=== PATIENT | female | born 1995 | race Caucasian/White ===

== ENCOUNTER → 2017-06-02 | Outpatient (CLI) | payer BC ==
--- NOTE | 2017-06-02 10:27 | USB ---
Reason for exam: clinical finding. Indicated problem(s): palpable abnormality and pain in the left breast. Physical Findings: Nurse did not find any significant physical abnormalities on exam. US Breast LT Left breast ultrasound includes all four quadrants, the retroareolar region and axilla. Finding demonstrates no cystic or solid lesion seen. These results were verbally communicated with the patient and result sheet given to the patient on 06/02/17. ASSESSMENT: Negative, BI-RAD 1 RECOMMENDATION: Clinical management of the left breast. Manage patient on a clinical basis.
== END | disposition home or self-care (01) ==
LOC: RADUSWWP 08:31
PROVIDERS: ATTEND Family Medicine
DX: N64.4 Mastodynia (principal)

== ENCOUNTER 2017-09-08 16:51 | Emergency (ER) | payer BC ==
[2017-09-08 16:55] VITALS: BP 114/80; PULSE 76; TEMP 98.1
--- NOTE | 2017-09-08 17:14 | ED ---
URI HPI - General Chief Complaint: Upper Respiratory Infection Stated Complaint: Cough Time Seen by Provider: 09/08/17 16:57 Source: patient Mode of arrival: ambulatory Limitations: no limitations - History of Present Illness Initial Comments: patient presents with cough for the past 3 days. 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 Patient states yesterday she had significant rhinorrhea and nasal congestion. Patient states she is coughing up green sputum. Patient denies fevers, chills, nausea, vomiting, abdominal pain, shortness of breath, sore throat, headaches, changes in bowel or bladder habits. Patient states last menstrual period 2 weeks ago, patient denies chance of being . patient states she gets bilateral chest pain when coughing or taking deep breaths. She denies history of blood clots, control use, smoking, prolonged immobilization, recent surgery. MD Complaint: cough - Related Data Previous Rx's Medication Instructions Recorded Albuterol Inhaler [Ventolin Hfa 1 - 2 puff INHALATION Q6HR PRN #1 09/08/17 Inhaler] inhaler Ibuprofen 400 mg PO Q6HR PRN #30 tablet 09/08/17 predniSONE 40 mg PO DAILY 4 Days #8 tab 09/08/17 Allergies Allergy/AdvReac Type Severity Reaction Status Date / Time No Known Allergies Allergy Verified 09/08/17 17:18 Review of Systems ROS Statement: Those systems with pertinent positive or pertinent negative responses have been documented in the HPI. Constitutional: Reports: other (dec appetite). Denies: fever, chills, weakness Eyes: Denies: eye pain, vision change ENT: Reports: ear pain (pt states she has a mild pressure in the ears bilaterally), congestion. Denies: throat pain Respiratory: Reports: cough. Denies: dyspnea, wheezes Cardiovascular: Reports: chest pain (with coughing). Denies: dyspnea on exertion Endocrine: Denies: fatigue Gastrointestinal: Denies: abdominal pain, nausea, vomiting, diarrhea, constipation Genitourinary: Denies: urgency, dysuria, frequency, hematuria, discharge, abnormal menses Musculoskeletal: Denies: back pain Skin: Denies: rash Neurological: Denies: headache, confusion Past Medical History Past Medical History: No Reported History Additional Past Medical History / Comment(s): History of depression, no suicidal or homicidal ideation bipolar History of Any Multi-Drug Resistant Organisms: None Reported Past Surgical History: Ear Surgery Past Psychological History: Anxiety, Bipolar, Depression Smoking Status: Never smoker Past Alcohol Use History: None Reported Past Drug Use History: None Reported General Exam - General Exam Comments Initial Comments: sitting up in bed. No distress. Conversing normally. Calm, pleasant. Well appearing. Limitations: no limitations General appearance: alert, in no apparent distress Head exam: Present: atraumatic, normocephalic Eye exam: Present: normal appearance, PERRL, EOMI ENT exam: Present: normal oropharynx, mucous membranes moist, TM's normal bilaterally, other (TMs clear bilaterally. Oropharynx clear.) Neck exam: Present: full ROM. Absent: tenderness, meningismus Respiratory exam: Present: normal lung sounds bilaterally. Absent: respiratory distress, wheezes, rales, rhonchi, stridor, chest wall tenderness, accessory muscle use, decreased breath sounds, prolonged expiratory Cardiovascular Exam: Present: regular rate, normal rhythm GI/Abdominal exam: Present: soft. Absent: distended, tenderness, guarding, rebound, rigid Neurological exam: Present: alert, oriented X3 Psychiatric exam: Present: normal affect, normal mood Skin exam: Present: warm, dry, intact, normal color. Absent: rash Course Vital Signs 09/08/17 09/08/17 16:53 17:21 Temperature 98.1 F Pulse Rate 76 Respiratory 20 18 Rate Blood Pressure 114/80 O2 Sat by Pulse 98 Oximetry Medical Decision Making - Medical Decision Making patient has signs of upper respiratory tract infection versus bronchitis and pleurisy. Doubt bacterial sinusitis, otitis media, pneumonia, pulmonary embolism. Discussed no chest x-ray at this time with patient, she agrees. We' ll give prescription for albuterol, steroids, ibuprofen for symptoms. Patient states he only reason she came to the ER she could not get into her regular primary care clinic. Patient feels comfortable going home. Understands she is to be reevaluated by primary care physician one to 2 days, require further workup including chest x-ray if symptoms persist. Return to ED if new or worsening symptoms. Patient understands and agrees. Disposition Clinical Impression: Bronchitis, Upper respiratory infection Disposition: HOME SELF-CARE Condition: Good Instructions: Upper Respiratory Infection (ED), Acute Bronchitis (ED) Additional Instructions: primary care physician one to 2 days. Get x-ray if cough persistent for greater than 5 days or fevers arise. Prescriptions: Albuterol Inhaler [Ventolin Hfa Inhaler] 1 - 2 puff INHALATION Q6HR PRN #1 inhaler PRN Reason: Cough Ibuprofen 400 mg PO Q6HR PRN #30 tablet PRN Reason: Pain predniSONE 40 mg PO DAILY 4 Days #8 tab Referrals: Zeke Suárez DO [Primary Care Provider] - 1-2 days
[2017-09-08 17:21] VITALS: RESP 18
== END 2017-09-08 17:22 | disposition home or self-care (01) ==
LOC: EC 16:51
DX: J40 Bronchitis, not specified as acute or chronic (principal); J06.9 Acute upper respiratory infection, unspecified
CPT/HCPCS: 99283

== ENCOUNTER 2018-08-13 14:55 | Emergency (ER) | payer BC, OTHER ==
[2018-08-13 15:03] VITALS: TEMP 98.5
[2018-08-13] MEDS ORDERED: IPRATROPIUM-ALBUTEROL 3 ML NEB INHALATION STA (15:38)
--- NOTE | 2018-08-13 16:02 | ED ---
ENT HPI - General Chief complaint: ENT Stated complaint: Cough Time Seen by Provider: 08/13/18 15:11 Source: patient, RN notes reviewed, old records reviewed Mode of arrival: ambulatory Limitations: no limitations - History of Present Illness Initial comments: 22-year-old female presents emergency Department chief complaint of cough congestion shortness breath. She plans of sore throat chest pain. Patient states that she is exposed to pneumonia with her daughter. Patient reports that her cough is productive. She has no history of asthma or lung disease. She is a nonsmoker. Patient denies any recent fever, chills, shortness of breath, chest pain, back pain, abdominal pain, nausea vomiting, numbness or tingling, dysuria or hematuria, constipation or diarrhea, headaches or visual changes, or any other current symptoms - Related Data Previous Rx's Medication Instructions Recorded Albuterol Inhaler [Ventolin Hfa 1 - 2 puff INHALATION Q6HR PRN #1 09/08/17 Inhaler] inhaler Ibuprofen 400 mg PO Q6HR PRN #30 tablet 09/08/17 predniSONE 40 mg PO DAILY 4 Days #8 tab 09/08/17 Albuterol Inhaler [Ventolin Hfa 1 - 2 puff INHALATION RT-Q6H PRN 08/13/18 Inhaler] #1 inhaler Azithromycin [Zithromax Z-pack] 0 mg PO DIRECTED #6 tab 08/13/18 methylPREDNISolone Dose Pack 4 mg PO DIRECTED #21 package 08/13/18 [Medrol Dose Pack] Allergies Allergy/AdvReac Type Severity Reaction Status Date / Time No Known Allergies Allergy Verified 08/13/18 15:03 Review of Systems ROS Statement: Those systems with pertinent positive or pertinent negative responses have been documented in the HPI. ROS Other: All systems not noted in ROS Statement are negative. Past Medical History Past Medical History: No Reported History Additional Past Medical History / Comment(s): History of depression, no suicidal or homicidal ideation bipolar History of Any Multi-Drug Resistant Organisms: None Reported Past Surgical History: Ear Surgery Past Psychological History: Anxiety, Bipolar, Depression Smoking Status: Never smoker Past Alcohol Use History: None Reported Past Drug Use History: None Reported General Exam - General Exam Comments Initial Comments: 22-year-old female. Alert and oriented. No acute distress. General: Well appearing, well nourished, in no distress. Oriented x 3, normal mood and affect . Ambulating without difficulty. Skin: Good turgor, no rash, unusual bruising or prominent lesions Hair: Normal texture and distribution. HEENT: Head: Normocephalic, atraumatic, no visible or palpable masses, depressions, or scaring. Eyes: Visual acuity intact, conjunctiva clear, sclera non-icteric, EOM intact, PERRL. Ears: EACs clear, TMs translucent & cone of light visualized. hearing intact. Nose: No external lesions, mucosa non-inflamed, septum and turbinates normal Mouth: Mucous membranes moist, no mucosal lesions. Pharynx: Erythematous cervix. No evidence of x-ray. Neck: Supple, without lesions, bruits, or adenopathy, thyroid non-enlarged and non-tender Heart: No cardiomegaly or thrills; regular rate and rhythm, no murmur or gallop Lungs: Patient has mild wheezes. Rhonchi lung sounds. Abdomen: Bowel sounds normal, no tenderness, organomegaly, masses, or hernia Back: Spine normal without deformity or tenderness, no CVA tenderness Extremities: No amputations or deformities, cyanosis, edema or varicosities, peripheral pulses intact Musculoskeletal: Normal gait and station. No misalignment, asymmetry, crepitation, defects, tenderness, masses, effusions, decreased range of motion, instability, atrophy or abnormal strength or tone in the head, neck, spine, ribs , pelvis or extremities. Neurologic: CN 2-12 normal. Sensation to pain, touch, and proprioception normal. DTRs normal in upper and lower extremities. No pathologic reflexes. Psychiatric: Oriented X3, intact recent and remote memory, judgment and insight , normal mood and affect. Limitations: no limitations Course Vital Signs 08/13/18 08/13/18 08/13/18 15:01 15:57 16:09 Temperature 98.5 F Pulse Rate 73 74 Respiratory 18 20 Rate Blood Pressure 101/59 O2 Sat by Pulse 100 Oximetry 08/13/18 16:15 Temperature Pulse Rate 77 Respiratory Rate Blood Pressure O2 Sat by Pulse Oximetry Medical Decision Making - Medical Decision Making 22-year-old female presents seems to plan of cough, sore throat, chest pain with taking a deep breath. She does have some wheezing and rhonchorous lung sounds. Patient at this time he'll get a breathing treatment. Chest x-ray was noted. She does have clinical diagnosis of bronchitis. We'll discharge the Patient with a Medrol Dosepak and antibiotics. Discussed close follow-up with primary care physician P Patient is treatment plan will comply. Parameters were discussed. - Radiology Data Radiology results: report reviewed Interpreted by me: Normal chest x-ray noted. Disposition Clinical Impression: Bronchitis Disposition: HOME SELF-CARE Condition: Good Instructions: Upper Respiratory Infection (ED) Additional Instructions: Rest, increase fluid intake. Follow-up with primary care physician. Return to emergency department if any alarming signs or symptoms occur. Prescriptions: Albuterol Inhaler [Ventolin Hfa Inhaler] 1 - 2 puff INHALATION RT-Q6H PRN #1 inhaler PRN Reason: Shortness Of Breath Azithromycin [Zithromax Z-pack] 0 mg PO DIRECTED #6 tab methylPREDNISolone Dose Pack [Medrol Dose Pack] 4 mg PO DIRECTED #21 package Is patient prescribed a controlled substance at d/c from ED?: No Referrals: Zeke Suárez DO [Primary Care Provider] - 1-2 days Time of Disposition: 16:38
--- NOTE | 2018-08-13 16:46 | XR ---
EXAMINATION TYPE: XR chest 2V DATE OF EXAM: 08/13/2018 COMPARISON: 01/15/2016 INDICATION: Pain cough congestion TECHNIQUE: Frontal and lateral views of the chest are obtained. FINDINGS: The heart size is normal. The pulmonary vasculature is normal. The lungs are clear. IMPRESSION: 1. No acute pulmonary process.
[2018-08-13 17:04] VITALS: BP 116/67; PULSE 81; RESP 18
== END 2018-08-13 17:00 | disposition home or self-care (01) ==
LOC: EC 14:55
DX: J40 Bronchitis, not specified as acute or chronic (principal)
CPT/HCPCS: 71046; 94640; 99284

== ENCOUNTER 2018-09-12 13:05 | Emergency (ER) | payer BC, OTHER ==
[2018-09-12 13:19] VITALS: TEMP 98.6
[2018-09-12 14:49] LABS: Basophils % (A) 0 %; Eosinophils # (A) 0.1 k/uL (0-0.7); Eosinophils % (A) 1 %; HCT 39.7 % (34.0-46.0); HGB 13.1 gm/dL (11.4-16.0); Lymphocytes % (A) 21 %; MCH 30.3 pg (25.0-35.0); MCHC 33.1 g/dL (31.0-37.0); MCV 91.6 fL (80.0-100.0); Mean Platelet Volume 7.8; Monocytes # (A) 0.3 k/uL (0-1.0); Monocytes % (A) 5 %; Neutrophils # (A) 3.4 k/uL (1.3-7.7); Neutrophils % (A) 70 %; Platelet Count 198 k/uL (150-450); RBC 4.33 m/uL (3.80-5.40); RDW 13.2 % (11.5-15.5); WBC 4.9 k/uL (3.8-10.6)
[2018-09-12 14:58] LABS: ALT 30 U/L (9-52); AST 21 U/L (14-36); Albumin 4.1 g/dL (3.5-5.0); Alkaline Phosphatase 49 U/L (38-126); Anion Gap 8 mmol/L; Blood Urea Nitrogen 19 mg/dL (7-17); Calcium 9.4 mg/dL (8.4-10.2); Carbon Dioxide 28 mmol/L (22-30); Chloride 105 mmol/L (98-107); Glucose 89 mg/dL (74-99); Potassium 3.7 mmol/L (3.5-5.1); Sodium 141 mmol/L (137-145); Total Bilirubin 0.3 mg/dL (0.2-1.3); Total Protein 7.2 g/dL (6.3-8.2)
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
--- NOTE | 2018-09-12 17:31 | MR ---
EXAMINATION TYPE: MR lumbar spine wo/w con DATE OF EXAM: 09/12/2018 COMPARISON: 06/02/2016 HISTORY: Chronic back pain, new onset numbness in genital area TECHNIQUE: Multiplanar, multisequence images of the lumbar spine were acquired utilizing 6 mL intrave nous Gadavist gadolinium contrast. L1-L2: Normal disc appearance without desiccation. No herniation, protrusion or disc bulging. No ca nal stenosis is present. Foramina are patent bilaterally. L2-L3: Normal disc appearance without desiccation. No herniation, protrusion or disc bulging. No ca nal stenosis is present. Foramina are patent bilaterally. L3-L4: Normal disc appearance without desiccation. No herniation, protrusion or disc bulging. No ca nal stenosis is present. Foramina are patent bilaterally. L4-L5: Normal disc appearance without desiccation. No herniation, protrusion or disc bulging. No ca nal stenosis is present. Foramina are patent bilaterally. L5-S1: Normal disc appearance without desiccation. No herniation, protrusion or disc bulging. No ca nal stenosis is present. Foramina are patent bilaterally. Lumbar segments are intact. No paraspinal masses are identified. Conus medullaris has a normal appearance. Gadolinium contrast enhancement pattern is normal. IMPRESSION: Negative examination.
[2018-09-12 18:47] VITALS: BP 119/57; PULSE 62; RESP 18
== END 2018-09-12 18:45 | disposition home or self-care (01) ==
LOC: EC 13:05
DX: S39.012A Strain of muscle, fascia and tendon of lower back, initial encounter (principal); X58.XXXA Exposure to other specified factors, initial encounter
CPT/HCPCS: 36415; 80053; 85025; 81025; 72158; 99284; A9585

== ENCOUNTER → 2018-11-21 | Outpatient (CLI) | payer BC, OTHER ==
[2018-11-21 12:18] LABS: Basophils % (A) 0 %; Eosinophils # (A) 0.1 k/uL (0-0.7); Eosinophils % (A) 3 %; HCT 42.1 % (34.0-46.0); HGB 13.7 gm/dL (11.4-16.0); Lymphocytes # (A) 0.9 k/uL (1.0-4.8); Lymphocytes % (A) 17 %; MCH 29.6 pg (25.0-35.0); MCHC 32.6 g/dL (31.0-37.0); MCV 90.8 fL (80.0-100.0); Mean Platelet Volume 7.4; Monocytes # (A) 0.3 k/uL (0-1.0); Monocytes % (A) 5 %; Neutrophils % (A) 73 %; Platelet Count 185 k/uL (150-450); RBC 4.63 m/uL (3.80-5.40); WBC 5.5 k/uL (3.8-10.6)
== END | disposition home or self-care (01) ==
LOC: LABPAT 11:34
PROVIDERS: ATTEND Obstetrics & Gynecology
DX: Z01.812 Encounter for preprocedural laboratory examination (principal); Z64.0 Problems related to unwanted pregnancy
CPT/HCPCS: 85025

== ENCOUNTER → 2018-11-22 | Day surgery (SDC) | payer BC, OTHER ==
[2018-11-11 11:27] VITALS: BMI 20.3
--- NOTE | 2018-11-21 14:28 | HP ---
HISTORY AND PHYSICAL REASON FOR ADMISSION: Surgery tomorrow on November 22, 2018 HISTORY OF PRESENT ILLNESS: This is a 23-year-old white female 3, para 2, 1, 03, who presents for permanent tubal sterilization. She has an IUD in place and would like this removed, secondary to dysmenorrhea. Menses are long and heavy since the IUD was placed in 2013, ParaGard. Her is 37 years old and is on chemotherapy for leukemia, they desire no further children. She does have 3 healthy children and again further child bearing is declined. REVIEW OF SYSTEMS: Otherwise negative. PAST MEDICAL HISTORY: Significant for anxiety, depression, insomnia, panic attacks, ovarian cyst. PAST SURGICAL HISTORY: Adenoidectomy, back injections, arthroscopy of the knee, laser ablation of perineal condylomata, arthroscopic shoulder surgery, tonsillectomy, tubes in the ears. MEDICATIONS: Current medications ParaGard IUD. ALLERGIES: Allergies none known. FAMILY HISTORY: Significant for stroke and CVA of the patient's father, ovarian cancer, as well as cervical cancer per patient's history in her mother. Grandmother had breast cancer. REPRODUCTIVE HISTORY: Significant for 3 normal spontaneous vaginal deliveries, unremarkable. SOCIAL HISTORY: The patient has never been a smoker, 1 cup of coffee daily, she is , she denies alcohol, tobacco, or drug use. PHYSICAL EXAMINATION: On examination, this is a pleasant white female, 5 foot 3 inches, 120 pounds, BMI 21, blood pressure 118/62. HEENT exam reveals no thyromegaly, no cervical lymphadenopathy, good range of motion in the neck. The breasts are bilaterally symmetric to inspection with no skin dimpling, nipple discharge, or axillary adenopathy. Chest is clear to auscultation in all mccracken. Cardiac exam reveals regular rate and rhythm with no murmur, click, or rub. Abdomen is soft and nontender, no organosplenomegaly, active bowel sounds. Extremities reveal no edema, good peripheral pulses, good range of motion. On pelvic exam, external genitalia is well estrogenized and atraumatic. No unusual vaginal bleeding. Cervix is multiparous to inspection, IUD strings are noted at the external os. Uterus is small, anteverted, anteflexed, mobile, smooth, and nontender. Adnexa are negative bilaterally to palpation. IMPRESSION: The patient desiring permanent tubal sterilization, experiencing dysmenorrhea with the current IUD contraceptive. She is wishing that to be removed as well at the time of surgery. PLAN: We will proceed with IUD removal, and laparoscopic tubal ligation utilizing Filshie clips. We have reviewed the risks of surgery to include possible aspiration, nerve damage, or from anesthetic. She understands the risk of bleeding, infection, perforation or damage to bowel, bladder, ureters, blood vessels, or indeed any pelvic or abdominal organs. She understands the unlikely but possible need for laparotomy if complications should occur. Questions have been answered to the best of my ability. Patient understands that this is a permanent method of sterilization, but does have a failure rate, and that if she should ever find herself with the signs and symptoms of , a test would need to be performed immediately as ectopic is likely and can be life threatening. All questions answered. MMODL / IJN: [id number] /
[~2018-11-22] MED LIST: BUPIVACAIN-EPI 0.25%-1:200,000 30 ML VIAL SQ ONE; DEXAMETHASONE SOD PHOSPHATE 10 MG/ML 1 ML VIAL IV ONE; GLYCOPYRROLATE 0.2 MG/ML 2 ML VIAL ONE; KETOROLAC 30 MG/ML 1 ML VIAL ONE; LACTATED RINGERS 1,000 ML IV ONE; LACTATED RINGERS 1,000 ML IV SCH; LIDOCAINE 1% INJ 10MG/ML (20 ML MDV) ONE; MIDAZOLAM 2 MG/2 ML VIAL IVP ONE; MIDAZOLAM 2 MG/2 ML VIAL ONE; MORPHINE SULFATE 2 MG/ML SYRINGE IV PRN; NEOSTIGMINE 1 MG/ML 10 ML VIAL ONE; ONDANSETRON 4 MG/2 ML VIAL IVP ONE; ONDANSETRON 4 MG/2 ML VIAL IVP PRN; PROPOFOL 10 MG/ML 20 ML VIAL IV ONE; ROCURONIUM BROMIDE 10 MG/ML 10 ML VIAL IV ONE; fentaNYL (PF) 50 MCG/ML 2 ML AMP ONE
--- NOTE | 2018-11-22 11:41 | P.OP ---
Date of Procedure: 11/22/18 Preoperative Diagnosis: Undesired fertility Postoperative Diagnosis: Same, normal-appearing tubes and ovaries and uterus Procedure(s) Performed: Laparoscopic tubal ligation with Filshie clips, removal of IUD Anesthesia: EFRAIN Surgeon: Iram Salas Estimated Blood Loss (ml): 5 IV fluids (ml): 400 Urine output (ml): 150 Pathology: none sent Condition: stable Disposition: PACU Operative Findings: Normal-appearing tubes and ovaries bilaterally, ParaGard IUD removed intact. Description of Procedure: Patient is brought to the operating suite where a general anesthetic is administered. She's placed in the dorsal lithotomy position. The appropriate timeout is performed to assure proper patient and procedural identification. Urine hCG is negative, antibiotics are not deemed necessary. The cervix, vagina , perineal body, abdomen are all prepped and draped in usual sterile fashion. Bladder is drained for 150 mL of clear yellow urine. Speculum was placed into the vagina, anterior lip of the cervix is grasped with a Allis clamp. The IUD strings are visualized, last with a ring forcep, and removed. IUD is inspected and noted to be fully intact. [place] cannula is then placed on the cervix and this is attached to the Allis. Speculum is removed and attention is now drawn to the abdominal cavity. A small infraumbilical incision is made. Veress needle is placed and placement is checked with hanging drop technique. Abdomen is insufflated under low filling pressures of approximate 6-8 mmHg. 3.7 L of CO2 gas are used. Pneumoperitoneum is excellent. Peritoneum was removed. Trochars placed and placement is atraumatic. Second incision is made suprapubically in the midline under direct visualization, the trocar is placed atraumatically. Patient is now placed in Trendelenburg position. The right fallopian tube is visualized in its entirety, including the fimbriated end. A Filshie clip is placed in the isthmic portion of the tube, with care to traverse the entire diameter of the tube into the mesal salpinx. Ovary is normal. The same procedure is carried out on the contralateral tube, again in the isthmic portion through the entire diameter of the tube into the mesal salpinx. Contralateral ovary is also normal to inspection. No evidence of uterine fibroids, no evidence of pelvic endometriosis, no evidence of adhesions. CO2 gas is now allowed to diffuse. Instruments are removed under direct visualization, fascial defects are clean and dry. 4-0 Monocryl is used in a subcuticular manner for final incision closure. Steri-Strips and Mastisol are applied after they are injected with quarter percent Marcaine with 1% lidocaine , 10 mL used totally. All instrumentation is removed from the vagina, the cervix is clean and dry. All sponge needle and enhancement counts are correct. Patient is given Toradol prior to leaving the operative suite. She was taken back to the recovery room in very good condition with stable vital signs including 107/59, pulse 86.
[2018-11-22 11:56] VITALS: TEMP 99
[2018-11-22] MEDS: HYDROmorphone 0.5 MG/0.5 ML SYRINGE IVP PRN ×3 (11:58→12:47)
[2018-11-22 13:10] VITALS: RESP 16
[2018-11-22 15:16] VITALS: BP 105/68; PULSE 80
== END | disposition home or self-care (01) ==
LOC: OR 08:54
PROVIDERS: ATTEND Obstetrics & Gynecology
DX: Z30.2 Encounter for sterilization (principal); N94.6 Dysmenorrhea, unspecified; Z97.5 Presence of (intrauterine) contraceptive device
CPT/HCPCS: 81025; 58301; 58671; J2250; J1100; J2710; J2405; J2001; J3010; J1885; J2704; J1170

== ENCOUNTER → 2020-02-02 | Outpatient (CLI) | payer BC, OTHER ==
--- NOTE | 2020-02-02 11:42 | XR ---
Left hand HISTORY: Swelling and pain, lump or mass left hand 3 views of the left hand Bone mineralization, joint spaces and alignment are maintained. No fracture or dislocation. IMPRESSION: No abnormalities evident.
== END | disposition home or self-care (01) ==
LOC: RADXRMAIN 11:08
PROVIDERS: ATTEND Nurse Practitioner Family
DX: R22.32 Localized swelling, mass and lump, left upper limb (principal)

== ENCOUNTER 2022-01-15 08:36 | Emergency (ER) | payer BC, OTHER ==
[2022-01-15] MEDS ORDERED: SODIUM CHLORIDE 0.9% 500 ML 500 ML IV STA (08:56)
[2022-01-15] MEDS ORDERED: SODIUM CHLORIDE 0.9% 1,000 ML IV STA (08:56)
[2022-01-15] MEDS ORDERED: KETOROLAC 15 MG/ML 1 ML VIAL IVP STA (08:56)
[2022-01-15 09:15] LABS: Basophils % (A) 0 %; Eosinophils % (A) 1 %; HGB 13.8 gm/dL (11.4-16.0); Lymphocytes # (A) 0.3 k/uL (1.0-4.8); Lymphocytes % (A) 10 %; MCHC 34.5 g/dL (31.0-37.0); MCV 95.6 fL (80.0-100.0); Mean Platelet Volume 9.1; Monocytes # (A) 0.3 k/uL (0-1.0); Monocytes % (A) 10 %; Neutrophils # (A) 2.1 k/uL (1.3-7.7); Neutrophils % (A) 77 %; Platelet Count 101 k/uL (150-450); RBC 4.19 m/uL (3.80-5.40); RDW 13.1 % (11.5-15.5); WBC 2.7 k/uL (3.8-10.6)
[2022-01-15 09:25] LABS: Appearance,Urine Cloudy (Clear); Bilirubin,Urine Negative (Negative); Blood,Urine Negative (Negative); Color,Urine Yellow; Glucose,Urine (UA) Negative (Negative); Ketones,Urine 1+ (Negative); Leukocyte Esterase,Urine Moderate (Negative); Nitrite,Urine Negative (Negative); PH, Urine 5.5 (5.0-8.0); Protein,Urine Trace (Negative); RBC,Urine <1 /hpf (0-5); Specific Gravity,Urine 1.026 (1.001-1.035); Squamous Epithelial Cell,Urine <1 /hpf (0-4); Urobilinogen,Urine <2.0 mg/dL (<2.0); WBC,Urine <1 /hpf (0-5)
[2022-01-15 09:31] LABS: ALT 57 U/L (4-34); AST 66 U/L (14-36); African American GFR (CKD) >90 (>60 ml/min/1.73 sqM); Albumin 4.1 g/dL (3.5-5.0); Alkaline Phosphatase 46 U/L (38-126); Amylase 44 U/L (30-110); Anion Gap 6 mmol/L; Blood Urea Nitrogen 16 mg/dL (7-17); Calcium 8.4 mg/dL (8.4-10.2); Carbon Dioxide 25 mmol/L (22-30); Chloride 106 mmol/L (98-107); Glucose 87 mg/dL (74-99); Lipase 67 U/L (23-300); Non-African American GFR(CKD) >90 (>60 ml/min/1.73 sqM); Potassium 4.3 mmol/L (3.5-5.1); Sodium 137 mmol/L (137-145); Total Bilirubin 0.4 mg/dL (0.2-1.3); Total Protein 6.9 g/dL (6.3-8.2)
--- NOTE | 2022-01-15 10:45 | CT ---
EXAMINATION TYPE: CT abdomen pelvis w con DATE OF EXAM: 01/15/2022 COMPARISON: CT dated 01/08/2016 HISTORY: Fever, Back pain CT DLP: 547.9 mGycm Automated exposure control for dose reduction was used. TECHNIQUE: Helical acquisition of images was performed from the lung bases through the pelvis. CONTRAST: Performed without Oral Contrast and with IV Contrast, patient injected with 100 mL of Isovue 300. FINDINGS: LUNG BASES: No significant abnormality is appreciated. LIVER/GB: Enlarged liver measuring 18 cm. It demonstrates slightly heterogeneous texture with suspect ed mild periportal edema. No definite hepatic focal lesion identified. Patent portal vein and hepatic veins. The CBD is not distended. Small amount of fluid is seen between the liver and the gallbladder . No radiodense gallbladder calculi. No CBD dilatation yet with questionable slight wall thickening i n the gosia hepatis. PANCREAS: No significant abnormality is seen. SPLEEN: No significant abnormality is seen. ADRENALS: No significant abnormality is seen. KIDNEYS: No significant abnormality is seen. FREE AIR: No free air is visualized. RETROPERITONEAL ADENOPATHY: None visualized REPRODUCTIVE ORGANS: Suboptimally assessed. No gross uterine mass. Suspected bilateral ovarian follic les, expected for the patient's age. No gross adnexal mass. Right pelvic tubal ligation clip with ano ther one seen between the uterus and the urinary bladder. URINARY BLADDER: Nondistended. PELVIC ADENOPATHY: No pathologically enlarged OSSEOUS STRUCTURES: No significant abnormality is seen. BOWEL: Unremarkable nondistended stomach, duodenum and small bowel. Suboptimal assessment of small o r large bowel due to paucity of intra-abdominal fat. Fecal loading of the colon. Acute diverticulitis or acute colitis cannot be excluded by this CT scan. Normal appendix. OTHER: Unremarkable major abdominal arteries. Small amount of free fluid is seen at the pelvis, possi aftab physiological. IMPRESSION: 1. Enlarged heterogeneous liver with suspected periportal edema as described above. Recommend correla tion with liver function tests and hepatic viral serology. Underlying cholangitis or acute liver disease cannot be excluded. 2. Suboptimal assessment of the small and large bowel, acute diverticulitis or acute colitis cannot b e excluded. Other incidental findings as described above.
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
[2022-01-15 12:40] VITALS: BP 105/69; PULSE 91; RESP 12; TEMP 100
== END 2022-01-15 12:51 | disposition home or self-care (01) ==
LOC: EC 08:36
DX: U07.1 COVID-19 (principal); M62.830 Muscle spasm of back; F31.9 Bipolar disorder, unspecified; F41.9 Anxiety disorder, unspecified; Z79.899 Other long term (current) drug therapy
CPT/HCPCS: 36415; 80053; 82150; 83605; 83690; 85025; 81001; 81025; 87635; 74177; 99284; 96374; 96361; J1885; Q9967

== ENCOUNTER 2022-01-15 14:53 | Emergency (ER) | payer OTHER ==
[2022-01-15 15:10] VITALS: TEMP 100.7
[2022-01-15] MEDS ORDERED: ACETAMINOPHEN TAB 500 MG TAB PO STA (16:24)
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
[2022-01-15 16:48] VITALS: BP 107/65; PULSE 66; RESP 18
== END 2022-01-15 16:47 | disposition home or self-care (01) ==
LOC: EC 14:53
DX: U07.1 COVID-19 (principal); F41.9 Anxiety disorder, unspecified; F31.9 Bipolar disorder, unspecified
CPT/HCPCS: 99283

== ENCOUNTER → 2024-02-01 | Outpatient (CLI) | payer OTHER ==
--- NOTE | 2024-02-01 17:05 | US ---
EXAMINATION TYPE: US groin LT DATE OF EXAM: 02/01/2024 COMPARISON: NONE CLINICAL INDICATION: Female, 28 years old with history of R10.2 PELVIC AND PERINEAL PAIN; Patient sta hui inguinal lump that comes and pain. No other symptoms. TECHNIQUE: Scanned left groin FINDINGS: There is a prominent lymph node measuring 0.8 x 0.3 x 1.1cm in the left groin, cortex loretta uring 0.2cm. Valsalva maneuver used to look for evidence of inguinal hernia. No evidence of inguinal hernia seen on today's exam. IMPRESSION: No evidence for internal hernia. Nonenlarged lymph node noted. No acute process.
--- NOTE | 2024-02-01 17:13 | US ---
EXAMINATION TYPE: US groin RT DATE OF EXAM: 02/01/2024 COMPARISON: NONE CLINICAL INDICATION: Female, 28 years old with history of R10.2 PELVIC AND PERINEAL PAIN; Patient fee ls an inguinal lump that comes and goes, also with pain. TECHNIQUE: Scanned rt groin, AOC FINDINGS: There are multiple prominent lymph nodes seen within the right inguinal AOC, largest measu ring 1.3 x 1.3 x 0.5cm with the cortex measuring 0.4cm. Valsalva maneuver used to look for evidence o f inguinal hernia. No evidence of inguinal hernia seen on today's exam. IMPRESSION: No evidence for suspicious mass. There is inguinal lymph nodes within the right groin whi ch are within normal limits. No evidence for hernia.
== END | disposition home or self-care (01) ==
LOC: RADUSWWP 13:52
PROVIDERS: ATTEND Family Medicine
DX: R10.2 Pelvic and perineal pain (principal)

== ENCOUNTER → 2024-02-11 | Outpatient (CLI) | payer OTHER ==
[2024-02-11 16:25] LABS: ALT 76 U/L (4-34); AST 36 U/L (14-36); African American GFR (CKD) >90 (>60 ml/min/1.73 sqM); Albumin 4.4 g/dL (3.5-5.0); Albumin/Globulin Ratio 1.6; Alkaline Phosphatase 65 U/L (38-126); Amylase 46 U/L (30-110); Anion Gap 8 mmol/L; Blood Urea Nitrogen 19 mg/dL (7-17); Calcium 8.8 mg/dL (8.4-10.2); Carbon Dioxide 27 mmol/L (22-30); Chloride 105 mmol/L (98-107); Globulin 2.8 g/dL; Glucose 89 mg/dL (74-99); Lipase 67 U/L (23-300); Non-African American GFR(CKD) >90 (>60 ml/min/1.73 sqM); Potassium 3.8 mmol/L (3.5-5.1); Sodium 140 mmol/L (137-145); Total Bilirubin 0.2 mg/dL (0.2-1.3); Total Protein 7.2 g/dL (6.3-8.2)
[2024-02-11 16:40] LABS: T4, Free (Free Thyroxine) 0.93 ng/dL (0.78-2.19)
--- NOTE | 2024-02-11 17:55 | CT ---
EXAMINATION TYPE: CT pelvis w con CT DLP: 257.6 mGycm, Automated exposure control for dose reduction was used. DATE OF EXAM: 02/11/2024 5:38 PM COMPARISON: CT abdomen pelvis most recent from CLINICAL INDICATION:Female, 28 years old with history of R59.0 LOCALIZED ENLARGED LYMPH NODES; lympha denopathy TECHNIQUE: Axial CT pelvis w con;Sagittal and coronal reformats were created on a separate workstati on. Contrast used:100 cc mL of Isovue 300 with IV Contrast, (none if empty) Oral contrast used: with Oral Contrast (none if empty) FINDINGS: BLADDER: Unremarkable REPRODUCTIVE: Tubal ligation clip on the right noted. There is arcuate versus septate morphology of t he uterus. STOMACH AND BOWEL: No evidence of bowel obstruction. PERITONEUM/RETROPERITONEUM: No evidence of pneumoperitoneum or free fluid. VASCULATURE: No evidence of aortic aneurysm. MUSCULOSKELETAL: No acute osseous abnormalities LYMPH NODES: No gross evidence for lymphadenopathy. Specifically, no greater than 1.0 cm lymph nodes in short axis. SOFT TISSUE/ABDOMINAL WALL: Unremarkable IMPRESSION: No evidence for lymphadenopathy, mass or acute process.
[2024-02-11 19:36] LABS: Thyroid Peroxidase Antibodies 10.9 U/mL (0.0-33.0)
[2024-02-11 21:01] LABS: Gliadin AB IgA, Deaminated Negative (Negative); Gliadin AB IgA, Unit <0.5 U/mL
[2024-02-12 02:14] LABS: Clam IgE <0.10 kU/L; Codfish IgE <0.10 kU/L; Egg White IgE <0.10 kU/L; Peanut IgE <0.10 kU/L; Scallop IgE <0.10 kU/L; Shrimp IgE 0.13 kU/L; Soybean IgE <0.10 kU/L; Walnut IgE (Food) <0.10 kU/L
[2024-02-17 18:38] LABS: Gliadin AB IgG, Deaminated Negative (Negative); Gliadin AB IgG, Unit <0.4 U/mL
== END | disposition home or self-care (01) ==
LOC: RADCTMAIN 15:26
PROVIDERS: ATTEND Family Medicine
DX: R59.0 Localized enlarged lymph nodes (principal)
CPT/HCPCS: 84439; 84481; 80053; 82607; 82150; 83690; 84443; 84403; 86003; 82785; 86376; 82306; 86038; 83516 ×4; 72193; 36415; Q9967